=== PATIENT | male | born 1950 | race Caucasian/White ===

== ENCOUNTER 2018-08-07 15:18 | Emergency (ER) | payer OTHER ==
[2018-08-07 15:30] VITALS: TEMP 97.2; O2SAT 95
[2018-08-07] MEDS ORDERED: KETOROLAC TROMETHAMINE 30 MG/ML SOL ONE (15:37)
[2018-08-07] MEDS: KETOROLAC TROMETHAMINE 30 MG/ML SOL IM ONE (15:42)
[2018-08-07 15:54] LABS: BASOPHILS % (AUTO) 1 % (0-3); EOSINOPHILS % (AUTO) 1 % (0-9); HEMATOCRIT 45 % (39-53); LYMPHOCYTES % (AUTO) 28.1 % (10-50); MEAN CORPUSCULAR HEMOGLOBIN 30.9 pg (27.0-32.0); MEAN CORPUSCULAR HGB CONC 33.4 gm/dl (32.0-36.0); MEAN CORPUSCULAR VOLUME 92 fL (80-100); MONOCYTES % (AUTO) 8.2 % (0-12); NEUTROPHILS % (AUTO) 62.1 % (37-80)
[2018-08-07 16:03] LABS: CALCIUM 8.5 mg/dl (8.5-10.1); CARBON DIOXIDE 27.1 mEq/L (21-32); CREATININE 1.14 mg/dl (0.80-1.30); POTASSIUM 3.9 mMol/L (3.5-5.1)
[2018-08-07 16:50] VITALS: BP 128/65; PULSE 95
== END 2018-08-07 16:35 | disposition home or self-care (01) | DRG 563 ==
LOC: ED 15:18
DX: S83.91XA Sprain of unspecified site of right knee, initial encounter (principal); W10.9XXA Fall (on) (from) unspecified stairs and steps, initial encounter; S80.01XA Contusion of right knee, initial encounter
CPT/HCPCS: 36415; 73560; 80048; 85025; 96372; 99283; J1885; L1830

== ENCOUNTER 2018-11-12 08:48 | Day surgery (SDC) | payer OTHER ==
[2018-11-12] MEDS ORDERED: PROPOFOL 500 MG/50 ML EMU IV ONE (09:27)
[2018-11-12] MEDS ORDERED: ONDANSETRON HCL 4 MG/2 ML SOL ONE (09:27)
[2018-11-12] MEDS ORDERED: MIDAZOLAM 2 MG/2 ML SOL ONE ×2 (09:27→10:04)
[2018-11-12] MEDS ORDERED: FENTANYL 100MCG/2ML SOL ONE (09:28)
[2018-11-12] MEDS ORDERED: BUPIVACAINE LIPOSOME 20 ML SUS ONE (10:32)
[2018-11-12] MEDS ORDERED: SODIUM CHLORIDE 20 ML 20 ML ONE (10:32)
[2018-11-12 12:56] VITALS: TEMP 96.9; O2SAT 95
[2018-11-12 13:08] VITALS: BP 128/87; PULSE 106; RESP 18
== END 2018-11-12 13:35 | disposition home or self-care (01) | DRG 950 ==
LOC: SURG 08:48
PROVIDERS: ATTEND Orthopaedic Surgery
DX: S76.111D Strain of right quadriceps muscle, fascia and tendon, subsequent encounter (principal)
CPT/HCPCS: J2250; J2405; J3010; J2001; J2704; L1830